=== PATIENT | male | born 1945 | race Caucasian/White ===

== ENCOUNTER → 2017-07-24 | Outpatient (CLI) | payer MEDICARE ==
[~2017-07-24] MED LIST: ADVAIR 250-501 EACH INH; AMBIEN 10 MG TA10 MG PO; B COMPLEX1 EACH PO; CALCIUM500 MG PO; CLONAZEPAM 1 MG1 M1 PO; FLEXERIL PO; GLUCOPHAGE500 MG PO; GLUCOSAMINE H1500 MG PO; MULTIVITAMINS PO; MYSOLINE250 M1 PO; OMEGA-31000 M1 PO; PROAIR HFA8.5 GM INH; SPIRIVA INH; ZOCOR 20 MG TAB20 M1 PO
== END ==
LOC: M.RAD 09:26
DX: R13.10 Dysphagia, unspecified (principal); J44.9 Chronic obstructive pulmonary disease, unspecified

== ENCOUNTER → 2017-12-26 | Outpatient (CLI) | payer MEDICARE | LOC: M.RAD 09:15 | DX: J40 Bronchitis, not specified as acute or chronic (principal); J98.4 Other disorders of lung ==

== ENCOUNTER → 2018-01-16 | Outpatient (CLI) | payer MEDICARE | LOC: M.CT 10:41 | DX: J47.9 Bronchiectasis, uncomplicated (principal); R93.8 Abnormal findings on diagnostic imaging of other specified body structures ==

== ENCOUNTER → 2018-01-29 | Outpatient (CLI) | payer MEDICARE | LOC: M.CT 09:46 | DX: K57.30 Diverticulosis of large intestine without perforation or abscess without bleeding (principal); D18.03 Hemangioma of intra-abdominal structures; R16.2 Hepatomegaly with splenomegaly, not elsewhere classified; J44.9 Chronic obstructive pulmonary disease, unspecified; M47.816 Spondylosis without myelopathy or radiculopathy, lumbar region ==